=== PATIENT | male | born 1970 | race Two or more races ===

== ENCOUNTER 2019-11-15 15:38 | Emergency (ER) | payer SELFPAY ==
[~2019-11-15] VITALS: Ht 167.6 cm; Wt 87.1 kg
--- NOTE | 2019-11-15 15:40 | NUR ---
Dr. Marrero at bedside for MSE
--- NOTE | 2019-11-15 15:51 | NUR ---
Patient BIB [facility] A&O x4. c/o left sided chest pain that radiates to left arm. Patient came from surgery center nearby for an epidural procedure. per report, O2 saturation dropped in the 70s during procedure, patient was brought out and O2 saturation back in the 90s. surgeon then noted some rash and redness on the back of the patient. was given benadryl and decadron at the surgery center. Per EMS patient received nitro and ASA in the field. Patient breathing even and unlabored. no cough or SOB noted. Patient is [place] speaking. speech is clear and able to follow simple commands. daughter at bedside to translate. Denies any N / V / NOBLES / Blurred vision.
[2019-11-15] MEDS ORDERED: HYDR-4384 PO (15:59)
[2019-11-15 16:09] LABS: BASOPHILS # (AUTO) 0.1 K/uL (0.0-8.0); BASOPHILS % (AUTO) 0.9 % (0.0-2.0); EOSINOPHILS # (AUTO) 0.1 K/uL (0.0-0.7); EOSINOPHILS % (AUTO) 1.9 % (0.0-7.0); HEMATOCRIT 44.4 % (36.7-47.1); LYMPHOCYTES # (AUTO) 2.1 K/uL (20.0-40.0); LYMPHOCYTES % (AUTO) 32.5 % (20.5-51.5); MEAN CORPUSCULAR HEMOGLOBIN 31.3 uug (23.8-33.4); MEAN CORPUSCULAR HGB CONC 34 g/dL (32.5-36.3); MONOCYTES # (AUTO) 0.4 K/uL (2.0-10.0); NEUTROPHILS # (AUTO) 3.7 K/uL (1.8-8.9); NEUTROPHILS % (AUTO) 58.7 % (38.5-71.5); PLATELET COUNT (AUTO) 241 K/uL (152-348); RED BLOOD CELL COUNT(AUTO) 4.78 MIL/uL (4.06-5.63); WHITE BLOOD COUNT (AUTO) 6.3 K/uL (3.6-10.2)
[2019-11-15] MEDS ORDERED: ACETAMINOPHEN 650 MG/20.3 ML LIQUID UDC PO ONE (16:15)
[2019-11-15 16:19] LABS: CREATININE 1.1 mg/dL (0.6-1.3); POTASSIUM 4.1 mmol/L (3.5-5.1)
[2019-11-15] MEDS ORDERED: ACETAMINOPHEN 325 MG TABLET ONE (16:23)
[2019-11-15 16:32] LABS: BILIRUBIN,DIRECT 0.1 mg/dL (0.0-0.2); BILIRUBIN,TOTAL 0.4 mg/dL (0.2-1.0); TOTAL PROTEIN, SERUM 7.6 g/dL (6.4-8.2)
--- NOTE | 2019-11-15 19:42 | NUR ---
Lab at bedside drawing 2nd troponin.
--- NOTE | 2019-11-15 20:15 | NUR ---
Patient discharged to home in stable condition. Written and verbal after care instructions given. Patient verbalizes understanding of instructions. Stressed follow up or return to ER for worsening s/s. Patient ambulated with stable gait. Patient accompanied by daughter.
[2019-11-15 20:17] VITALS: BP 138/82
== END 2019-11-15 20:17 | disposition home or self-care (01) ==
LOC: ER 15:42
DX: R07.9 Chest pain, unspecified (principal); G89.21 Chronic pain due to trauma; M54.5 Low back pain; V89.2XXS Person injured in unspecified motor-vehicle accident, traffic, sequela; Z98.890 Other specified postprocedural states
CPT/HCPCS: 36415; 70030-TC; 71045; 85025; 93005; A4663; J7030